=== PATIENT | female | born 1970 | race Caucasian/White ===

== ENCOUNTER → 2016-12-27 | Outpatient (CLI) | payer SELFPAY ==
--- NOTE | 2016-12-28 11:08 | KCIC ---
MR of the left knee Indication: Pain. Technique: The standard multiplanar sequences are obtained. Findings: Medial meniscus:Intact. Lateral meniscus: Intact. Anterior cruciate ligament: Intact Posterior cruciate ligament: Intact Medial collateral ligament: Intact. Iliotibial band: Intact. Posterolateral structures: Fibular collateral ligament, biceps tendon and popliteus tendon are intact. Extensor mechanism: Intact. Fluid: No significant joint effusion. No significant Obrien's cyst. Articular cartilage -patellofemoral joint:Intact -medial compartment:Intact -lateral compartment:Intact Bones: No significant lesion or acute fracture. Soft tissue: Unremarkable Impression: No evidence of meniscal tear or internal derangement. Electronically signed by: Delvin Stevens MD (12/28/2016 11:04 AM) [id number]
== END | disposition home or self-care (01) ==
LOC: KCIC MRI 17:26
PROVIDERS: ATTEND Orthopaedic Surgery
DX: M25.562 Pain in left knee (principal)
CPT/HCPCS: 73721

== ENCOUNTER → 2021-01-10 | Outpatient (CLI) | payer OTHER ==
--- NOTE | 2021-01-10 17:48 | KCIC ---
PROCEDURE: Bilateral diagnostic 2-D mammogram and targeted left breast ultrasound. INDICATION: Diffuse bilateral breast pain. COMPARISON: Previous mammogram and left breast ultrasound from 10/29/2014. FINDINGS MAMMOGRAM: Breast density: Category B. There are scattered areas of fibroglandular density. There is a small area of nodularity in the retroareolar/9:00 position about 1 cm from the nipple. No other discrete breast mass is seen. No malignant appearing calcifications or architectural distortion identified. The bilateral retroglandular saline breast implants are unremarkable except for right im plant capsule calcification. FINDINGS TARGETED LEFT BREAST ULTRASOUND: The left retroareolar region imaged in the area of concern on mammogram. The left axilla was evaluated. There 2 small cysts adjacent to each other in the 9:00 position, 1 cm from the nipple, which in aggre gate measure about 1 cm. This is a correlate for the area of interest on mammogram.. The no suspiciou s breast mass is seen. No left axillary adenopathy is seen. IMPRESSION: No evidence of malignancy. There are 2 small cysts adjacent to each other in the left mikey ast retroareolar/9:00 position. ASSESSMENT: BI-RADS 2. Benign findings. Recommendation: Routine screening mammogram one year. Results were given to the patient at time of examination. Patient information will be entered into [employer] mammography reminder system with target recall date for the next mammogram. A reminder letter will be generated. Electronically signed by: Marissa Galvan MD (01/10/2021 5:45 PM) [email or web address]
== END ==
LOC: KCIC MAMMO 09:22
PROVIDERS: ATTEND Nurse Practitioner Women's Health
DX: N60.02 Solitary cyst of left breast (principal); N64.4 Mastodynia
CPT/HCPCS: 76641; 77066